=== PATIENT | male | born 1985 | race Caucasian/White ===

== ENCOUNTER 2022-07-30 06:09 | Emergency (ER) | payer BC, SELFPAY ==
[2022-07-30 06:11] VITALS: BP 160/86; PULSE 107; RESP 15; TEMP 36.7; O2SAT 97; BMI 27.2
--- NOTE | 2022-07-30 06:20 | RAD_ITS ---
EXAM: XR CHEST, 1 VIEW CLINICAL INDICATION: chest pain TECHNIQUE: Frontal view of the chest. This report was created using [employer] report generation technology. COMPARISON: 05/11/2017 FINDINGS: LUNGS AND PLEURAL SPACES: Unremarkable. No consolidation or edema. No pneumothorax. No effusion. HEART: Unremarkable. Cardiac silhouette not enlarged. MEDIASTINUM: Central airways and mediastinal contour are unremarkable. BONES/JOINTS: Prior surgical repair of the right clavicle. SOFT TISSUES: Unremarkable. RAD/Chest 1 View (Portable) IMPRESSION: No acute findings in the chest. Electronically Signed: Fito Schultz MD at 6:34 EDT ,
--- NOTE | 2022-07-30 06:21 | EDS_ITS ---
HPI History of Present Illness Chief Complaint: Chest Other Informant: patient Onset/Context/Timing Onset: Today and Yesterday Activity at onset: gradual Timing: Intermittent Quality: Positive for Dull Location: Left Parasternal Current Severity: Mild Maximum Severity: Mild Worsened By: Nothing Relieved By: Nothing Associated Symptoms: Negative for Nausea, Vomiting, Diaphoresis, Fever, Lightheadedness, Acid Reflux or Palpitations Narrative Narrative: 37-year-old male missing a past medical history. Prior appendectomy and hernia repair. States that he has had a cough with some chest discomfort the last several days. Cough is has yellow phlegm. Denies fever. Said the chest discomfort is more of a soreness in the left chest. Does not radiate to his arm neck jaw or back. No history of any cardiac disease. He denies any recent exertional dyspnea. 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 He denies any history of DVT or PE. No leg pain or swelling. No melena. No recent travel, surgery or immobilization. Prior Similar Symptoms: No Recent Illness/Hospitalization: No CVD Risk Factors: Positive for Smoking; Negative for Hypertension or Diabetes PE Risk Factors: Negative for Recent Travel/Surgery, Recent Immobilization, Prior DVT or PE, Cancer or OCP + Smoking + >/=35 TAD Risk Factors: Negative for Marfan's Syndrome PFSH PFSH Medical History no medical history no medical history Allergy/AdvReac Type Severity Reaction Status Date / Time No Known Allergies Allergy Verified 07/30/22 06:14 Family History no significant family his no significant family history Surgical History History of appendectomy History of hernia surgery History of surgery on upper extremity Social History Smoking Status: Current every day smoker tobacco type: cigarettes ROS ROS ED ROS Narrative Cough. Yellow sputum. Chest discomfort. Review of Systems ROS Unobtainable: Denies due to encephalopathy Constitutional Constitutional ED: Denies chills or fever(s) Eyes Eyes: Reports none ENT ENT ED: Denies ear pain, rhinorrhea or sore throat Cardiovascular Cardiovascular: Reports as per HPI and chest pain Respiratory/Chest Respiratory/Chest: Reports cough and dyspnea Gastrointestinal Gastrointestinal: Denies abdominal pain Genitourinary Genitourinary ED: Denies dysuria or hematuria Musculoskeletal Musculoskeletal: Denies arthralgias Integumentary Denies abscess Neurologic Neurologic: Denies headache(s) Psychiatric Psychiatric: Denies anxiety Endocrine Endocrinology: Denies cold intolerance Hematologic/Lymphatic Hematologic/Lymphatic: Denies easy bleeding Allergic/Immunologic Allergic/Immunologic ED: Denies mouth swelling or tongue swelling EXAM Physical Exam Narrative Exam Narrative: Well-appearing 37-year-old male. Vital signs stable afebrile. Pulse ox 97% on room air no signs hypoxia. H EENT exam unremarkable. Posterior pharynx normal. TMs normal. Neck nontender. No JVD. No lymphadenopathy. Lungs clear to auscultation bilaterally. Heart regular rhythm rate of 105 no murmur. Chest wall nontender. Abdomen soft nontender. Back nontender. Moving all 4 extremities. Calves are nontender without edema or cords. Equal symmetrical radial pulses. Neurologically is awake and alert with no focal motor deficits. Normal exam. Const Vital Signs: 07/30/22 06:11 07/30/22 06:17 Temperature 98.0 F Temperature Source Temporal Pulse Rate 107 H Respiratory Rate 15 Respiratory Effort Normal Non-Labored Respiratory Pattern Normal Blood Pressure 160/86 H Blood Pressure Mean 110 Pulse Ox 97 Oxygen Delivery Method Room Air Positive well nourished and well developed; Negative for obese, cachectic, contractures or unkempt General Appearance ED: well developed and NAD; Negative for unkempt, cachectic, contractures or pallor Nutritional Appearance: Negative for cachectic or obese HEENT Reports TM's clear, moist mucous membranes and dry mucous membranes normocephalic and atraumatic; Negative for trauma or tenderness Tympanic Membrane ED: Yes TM's clear Mouth ED: Yes dry mucous membranes Mouth: dry mucous membranes Eyes PERRL and EOMs intact bilaterally General Eye ED: Negative for pale conjunctiva or scleral icterus Neck no lymphadenopathy, supple and no JVD Chest Wall inspection of chest normal and palpation of chest normal Chest: Negative for tenderness Resp normal respiratory effort and clear to auscultation bilaterally Effort and Inspection: Negative for respiratory distress Auscultation: Negative for rales Cardio regular rate, regular rhythm, S1 normal heart sound, S2 normal heart sound and no murmurs Rate: Negative for bradycardia Peripheral Pulses: pulses 2+ throughout and brachial pulses present GI normal to inspection, nondistended, normoactive bowel sounds, soft to palpation, non-tender, non-distended and no masses Auscultation: Negative for hyperactive bowel sounds Palpation: Negative for splenomegaly or mass Back/Spine no CVA tenderness and no thoracic nor lumbar tenderness General Back: Negative for CVA tenderness Cervical Spine: Negative for cervical spine tenderness Extremity normal to inspection General Extremety ED: Negative for edema, pulses abnormal or tenderness General Extremity: Negative for edema or pulses abnormal Neuro oriented x3, CN's II-XII intact bilaterally, no sensory deficits noted and gait normal Sensorium / Orientation: awake, alert, oriented to person, oriented to place and oriented to time; Negative for confused, lethargic or stuporous Motor Exam: strength 5/5 throughout; Negative for general weakness Psych mental status grossly normal Appearance: Negative for unkempt Attitude: No agitated Mood & Affect: Negative for depressed, anxious or tearful Skin no rashes or lesions noted and no wounds General Skin Exam: Negative for jaundice or pallor Rashes: No rashes noted Trauma: Negative for abrasion or laceration MDM MDM MDM Narrative Medical decision making narrative: Healthy 29-year-old male with atypical chest discomfort which sounds like a URI. He has had no exertional chest pain. No significant risk factors for cardiac disease. Nor any history of DVT or PE or any recent travel, surgery or immobilization. No calf pain or swelling. No hemoptysis. I think this is a URI most likely viral. I will check a chest x-ray to evaluate for pneumonia or pneumothorax or effusion. I have noted the above. An EKG will be done but my suspicion for this being cardiac is very low. If the EKG is unremarkable I do not think he needs blood work. Repeat exam patient doing well at 6:50 AM. Exam benign and unchanged. He and I went over his test results. I do not think he needs any further studies or lab work. Discharged home. Tylenol and Motrin as needed. Return if worse or not improving follow-up with primary care physician. History & Record Review Discussion w/independent historian: Patient Radiography Chest X-Ray - ED: 1 View, Read by ED Physician, Read by Radiologist, Heart, Lungs, Mediastinum, Bony Structures, No Acute Disease and Chronic Changes Diagnostic Testing: Clinical Impression(s) from Imaging Studies Chest X-Ray 04/05/23 06:20 IMPRESSION: No acute findings in the chest. Electronically Signed: Fito Schultz MD at 6:34 EDT , Chest x-ray, portable, single view, interpreted by myself shows no acute abnormality. Normal cardiac silhouette mediastinum. Also read by the radiologist who agrees. Rhythm Strip Rhythm Strip: Sinus Rhythm Rate: 97 Ectopy: None EKG Initial EKG: Attestation: I personally reviewed and interpreted this EKG as follows: Interpretation: Sinus Rhythm and No Acute Injury Pattern Comments: Normal sinus rhythm at a rate of 97 no acute signs of DC, ischemia or dysrhythmia. Prior EKG tracings: not available for review Prior: No Prior Discharge Plan Triage Chief Complaint: Chest Other ED Provider: Darrick Thrasher Dx/Rx/DC Orders Clinical Impression: Atypical chest pain, Viral URI Instructions: ED Pain, Acute, Uncertain Cause Primary Care Provider: Care Physician,No Primary Referrals: Sacha Garcia MD [Med Staff - Hospice Manager] - 1 Week if not improving Care Physician,No Primary [Primary Care Provider] - Activity Restrictions/Additional Instructions: Plenty of fluids and rest. Tylenol Motrin for any discomfort. This appears to be a viral upper respiratory infection. This should progressively improve. Follow-up with your doctor if not improving. Return if you are feeling a lot worse. If the chest pain gets a lot more severe you cough up blood we need to reevaluate you. Disposition Disposition: Home, Self Care
[2022-07-30 06:54] VITALS: BP 116/72; PULSE 100; RESP 15; O2SAT 97
== END 2022-07-30 06:55 | disposition home or self-care (01) ==
LOC: ED 06:32
PROVIDERS: Emergency Provider Emergency Medicine; Visit Provider Emergency Medicine
DX: R07.89 Other chest pain (principal); J06.9 Acute upper respiratory infection, unspecified; F17.210 Nicotine dependence, cigarettes, uncomplicated
CPT/HCPCS: 71045; 93005; 99283